=== PATIENT | male | born 1960 | race Caucasian/White ===

== ENCOUNTER 2018-02-05 14:06 | Emergency (ER) | payer MEDICAID ==
[~2018-02-05] VITALS: Ht 167.6 cm; Wt 76.2 kg
[2018-02-05 14:24] VITALS: Ht 167.6 cm; Wt 76.2 kg
[2018-02-05 16:06] VITALS: BP 138/84
== END 2018-02-05 16:06 | disposition home or self-care (01) ==
LOC: ED 14:06
DX: S82.61XA Displaced fracture of lateral malleolus of right fibula, initial encounter for closed fracture (principal); W20.8XXA Other cause of strike by thrown, projected or falling object, initial encounter; Y93.89 Activity, other specified; Y92.89 Other specified places as the place of occurrence of the external cause; Y99.8 Other external cause status

== ENCOUNTER 2018-12-03 17:26 | Emergency (ER) | payer MEDICAID ==
[~2018-12-03] VITALS: Ht 167.6 cm; Wt 74.4 kg
[2018-12-03 17:27] VITALS: BP 159/95; Ht 167.6 cm; Wt 74.4 kg
== END 2018-12-03 18:38 | disposition home or self-care (01) ==
LOC: ED 17:26
DX: B02.9 Zoster without complications (principal); F17.210 Nicotine dependence, cigarettes, uncomplicated